=== PATIENT | male | born 1955 ===

== ENCOUNTER 2019-03-02 19:41 | Emergency (ER) | payer SELFPAY ==
--- NOTE | 2019-03-02 19:54 | NUR ---
Per registration, pt escorted out and off the property by security.
== END 2019-03-02 20:22 | disposition left against medical advice (07) ==
LOC: ER 19:42
DX: R06.02 Shortness of breath (principal); Z53.21 Procedure and treatment not carried out due to patient leaving prior to being seen by health care provider